=== PATIENT | female | born 1980 | race Caucasian/White ===

== ENCOUNTER 2021-12-20 16:01 | Inpatient (IN) ==
[2021-12-20] MEDS ORDERED: Buffered Lidocaine 1% SYRIN 1 ml INTRADERM ONE (18:05)
[2021-12-20] MEDS ORDERED: Lactated Ringers 1000 ml BAG 1,000 ML IV ONE (18:05)
[2021-12-20] MEDS ORDERED: Dinoprostone 10 MG VAG.SUPP VAGINAL ONE (18:05)
[2021-12-20] MEDS ORDERED: Lactated Ringers 1000 ml BAG 1,000 ML IV SCH (19:00)
[2021-12-20 20:10] LABS: Urine Benzodiazepine Screen None Detected (None Detect); Urine Cannabinoids Screen None Detected (None Detect); Urine Opiates Screen None Detected (None Detect)
[2021-12-20 20:29] LABS: Hematocrit 36 % (35-47); Hemoglobin 12.3 g/dL (12.0-16.0); Mean Corpuscular HGB Conc 34 g/dL (31-36); Mean Corpuscular Hemoglobin 32 pg (27-31); Mean Corpuscular Volume 94 fL (80-97); Mean Platelet Volume 11.8 fL (7.4-10.4); Platelet Count 126 10^3/uL (150-450); Red Blood Count 3.79 10^6 /uL (3.70-4.87); Red Cell Distribution Width 13 % (10-15); White Blood Count 8.6 10^3/uL (3.5-10.8)
[2021-12-20 20:59] LABS: Albumin 2.8 g/dL (3.2-5.2); Albumin/Globulin Ratio 1.2 (1-3); Calcium 8.4 mg/dL (8.6-10.3); Globulin 2.4 g/dL (2-4); Potassium 4.1 mmol/L (3.5-5.0); Total Bilirubin 0.3 mg/dL (0.2-1.0); Total Protein 5.2 g/dL (6.4-8.9); eGFR CKD-EPI 71.8 (>60)
[2021-12-20 21:07] LABS: ABS Eosinophils 0.1 10^3/ul (0-0.6); ABS Lymphocytes 2.2 10^3/ul (1.0-4.8); ABS Monocytes 0.5 10^3/ul (0-0.8); ABS Neutrophils 5.7 10^3/ul (1.5-7.7); Eosinophil % 0.8 %; Lymphocyte % 25.6 %
[2021-12-21 02:24] LABS: Hematocrit 36 % (35-47); Hemoglobin 12.6 g/dL (12.0-16.0); Mean Corpuscular HGB Conc 35 g/dL (31-36); Mean Corpuscular Hemoglobin 33 pg (27-31); Mean Corpuscular Volume 94 fL (80-97); Mean Platelet Volume 11.9 fL (7.4-10.4); Platelet Count 119 10^3/uL (150-450); Red Blood Count 3.87 10^6 /uL (3.70-4.87); Red Cell Distribution Width 13 % (10-15); White Blood Count 7.8 10^3/uL (3.5-10.8)
[2021-12-21 02:26] LABS: ABS Eosinophils 0.1 10^3/ul (0-0.6); ABS Lymphocytes 2.3 10^3/ul (1.0-4.8); ABS Monocytes 0.5 10^3/ul (0-0.8); ABS Neutrophils 4.9 10^3/ul (1.5-7.7); Lymphocyte % 29.3 %
[2021-12-21 03:01] LABS: Albumin 2.7 g/dL (3.2-5.2); Albumin/Globulin Ratio 1.2 (1-3); Globulin 2.3 g/dL (2-4); Total Bilirubin 0.3 mg/dL (0.2-1.0); eGFR CKD-EPI 78.2 (>60)
[2021-12-21] MEDS ORDERED: Lidocaine 4% GEL 10 GM TUBE TOPICAL PRN (10:05)
[2021-12-21] MEDS ORDERED: Lidocaine 2% JELLY 6 ML Topical TOPICAL PRN (10:28)
[2021-12-21] MEDS ORDERED: miSOPROStol 100 mcg TAB VAGINAL ONE ×4 (10:56→23:24)
[2021-12-21] MEDS ORDERED: miSOPROStol 100 mcg TAB ONE (11:03)
[2021-12-21 14:15] LABS: Hematocrit 36 % (35-47); Hemoglobin 12.3 g/dL (12.0-16.0); Mean Corpuscular HGB Conc 34 g/dL (31-36); Mean Corpuscular Hemoglobin 32 pg (27-31); Mean Corpuscular Volume 93 fL (80-97); Mean Platelet Volume 11.2 fL (7.4-10.4); Platelet Count 116 10^3/uL (150-450); Red Blood Count 3.91 10^6 /uL (3.70-4.87); Red Cell Distribution Width 13 % (10-15); White Blood Count 8.3 10^3/uL (3.5-10.8)
[2021-12-21 15:26] LABS: Albumin 2.7 g/dL (3.2-5.2); Albumin/Globulin Ratio 1.2 (1-3); Calcium 7.8 mg/dL (8.6-10.3); Globulin 2.3 g/dL (2-4); Potassium 3.8 mmol/L (3.5-5.0); Total Bilirubin 0.3 mg/dL (0.2-1.0); Uric Acid 6.9 mg/dL (2.3-6.6); eGFR CKD-EPI 74.4 (>60)
[2021-12-21 16:19] LABS: ABS Lymphocytes 1.9 10^3/ul (1.0-4.8); ABS Monocytes 0.6 10^3/ul (0-0.8); ABS Neutrophils 5.7 10^3/ul (1.5-7.7); Eosinophil % 0.5 %; Large Platelets Present; Lymphocyte % 23.4 %; Nucleated Red Blood Cells % 0.1
[2021-12-21 20:26] LABS: ABS Eosinophils 0.1 10^3/ul (0-0.6); ABS Lymphocytes 2.5 10^3/ul (1.0-4.8); ABS Monocytes 0.7 10^3/ul (0-0.8); ABS Neutrophils 5.8 10^3/ul (1.5-7.7); Eosinophil % 1.2 %; Hematocrit 38 % (35-47); Hemoglobin 12.9 g/dL (12.0-16.0); Mean Corpuscular HGB Conc 34 g/dL (31-36); Mean Corpuscular Hemoglobin 32 pg (27-31); Mean Corpuscular Volume 94 fL (80-97); Nucleated Red Blood Cells % 0.1; Red Blood Count 4.05 10^6 /uL (3.70-4.87); Red Cell Distribution Width 13 % (10-15); White Blood Count 9.2 10^3/uL (3.5-10.8)
[2021-12-21 21:13] LABS: Albumin 2.8 g/dL (3.2-5.2); Albumin/Globulin Ratio 1.1 (1-3); Calcium 8.3 mg/dL (8.6-10.3); Globulin 2.6 g/dL (2-4); Potassium 4.2 mmol/L (3.5-5.0); Total Bilirubin 0.4 mg/dL (0.2-1.0); Total Protein 5.4 g/dL (6.4-8.9); eGFR CKD-EPI 66.3 (>60)
[2021-12-21 21:31] LABS: Large Platelets Present; Platelet Count 132 10^3/uL (150-450)
[2021-12-22 02:24] LABS: Hematocrit 36 % (35-47); Hemoglobin 12.4 g/dL (12.0-16.0); Mean Corpuscular HGB Conc 35 g/dL (31-36); Mean Corpuscular Hemoglobin 33 pg (27-31); Mean Corpuscular Volume 95 fL (80-97); Mean Platelet Volume 12.1 fL (7.4-10.4); Platelet Count 114 10^3/uL (150-450); Red Blood Count 3.76 10^6 /uL (3.70-4.87); Red Cell Distribution Width 13 % (10-15); White Blood Count 8.2 10^3/uL (3.5-10.8)
[2021-12-22 02:40] LABS: ABS Basophils 0.1 10^3/ul (0-0.2); ABS Eosinophils 0.1 10^3/ul (0-0.6); ABS Lymphocytes 2.5 10^3/ul (1.0-4.8); ABS Monocytes 0.6 10^3/ul (0-0.8); Eosinophil % 1.4 %; Lymphocyte % 29.9 %; Nucleated Red Blood Cells % 0.1
[2021-12-22 02:48] LABS: Albumin 2.4 g/dL (3.2-5.2); Calcium 7.8 mg/dL (8.6-10.3); Globulin 2.3 g/dL (2-4); Potassium 3.8 mmol/L (3.5-5.0); Total Bilirubin 0.3 mg/dL (0.2-1.0); Total Protein 4.7 g/dL (6.4-8.9); eGFR CKD-EPI 79.2 (>60)
[2021-12-22] MEDS ORDERED: Magnesium Sulfate OB PREMIX 4 GM/100 ML BAG IV ONE (06:12)
[2021-12-22] MEDS ORDERED: Calcium Gluconate 1 GM/10 ML VIAL (in Pyxis) IV PUSH PRN ×2 (06:14→08:57)
[2021-12-22] MEDS ORDERED: Labetalol IV 5 MG/ML 20 ml VIAL ONE (06:16)
[2021-12-22] MEDS ORDERED: Magnesium Sulfate OB PREMIX 40 GM/1,000 ML BAG ONE (06:17)
[2021-12-22] MEDS: Labetalol IV 5 MG/ML 20 ml VIAL IV PUSH ONE ×2 (06:19→06:26)
[2021-12-22] MEDS ORDERED: Lidocaine/Epinephrin 1.5%/200 5 ML AMP INJ ONE (06:30)
[2021-12-22] MEDS ORDERED: OBEPIDURAL (200 ML) 200 ML EPIDURAL ONE (06:30)
[2021-12-22] MEDS ORDERED: fentaNYL 100 mcg/2 ml 50 MCG/ML VIAL ONE ×2 (06:49→17:56)
[2021-12-22] MEDS ORDERED: Magnesium Sulfate OB PREMIX 40 GM/1,000 ML BAG IVPB SCH ×2 (07:00→09:00)
[2021-12-22] MEDS ORDERED: Lactated Ringers 1000 ml BAG 1,000 ML IV ONE (08:04)
[2021-12-22] MEDS ORDERED: Sodium Citrate/Citric Acid LIQ 15 ML UDC PO PRN (08:04)
[2021-12-22] MEDS ORDERED: Phenylephrine 40 mcg/mL 10mL (400mcg) SYRINGE IV PUSH PRN ×2 (08:04)
[2021-12-22 08:17] LABS: Hematocrit 38 % (35-47); Mean Corpuscular HGB Conc 34 g/dL (31-36); Mean Corpuscular Hemoglobin 33 pg (27-31); Mean Corpuscular Volume 94 fL (80-97); Mean Platelet Volume 11.8 fL (7.4-10.4); Platelet Count 130 10^3/uL (150-450); Red Blood Count 4.01 10^6 /uL (3.70-4.87); Red Cell Distribution Width 13 % (10-15); White Blood Count 9.8 10^3/uL (3.5-10.8)
[2021-12-22 08:25] LABS: Urine Appearance Cloudy; Urine Bilirubin Negative (Negative); Urine Blood 2+ (Negative); Urine Color Yellow; Urine Glucose Negative (Negative); Urine Ketones Negative (Negative); Urine Nitrite Negative (Negative); Urine Protein 2+(100 mg/dL) (Negative); Urine Specific Gravity 1.013 (1.002-1.030); Urine Urobilinogen Negative (Negative)
[2021-12-22] MEDS ORDERED: Lactated Ringers 1000 ml BAG 1,000 ML IV SCH ×2 (09:00→20:00)
[2021-12-22] MEDS ORDERED: Oxytocin in LR 20 UNITS/1,000 ML BAG IVPB SCH ×2 (09:00→09:57)
[2021-12-22] MEDS ORDERED: OBEPIDURAL (200 ML) 200 ML EPIDURAL SCH (09:00)
[2021-12-22 09:02] LABS: Albumin 2.8 g/dL (3.2-5.2); Albumin/Globulin Ratio 1.1 (1-3); Calcium 8.1 mg/dL (8.6-10.3); Globulin 2.5 g/dL (2-4); Potassium 3.7 mmol/L (3.5-5.0); Total Bilirubin 0.4 mg/dL (0.2-1.0); Total Protein 5.3 g/dL (6.4-8.9); eGFR CKD-EPI 70.9 (>60)
[2021-12-22 09:39] LABS: ABS Basophils 0.1 10^3/ul (0-0.2); ABS Eosinophils 0.1 10^3/ul (0-0.6); ABS Monocytes 0.6 10^3/ul (0-0.8); Large Platelets Present; Lymphocyte % 20.6 %
[2021-12-22 09:44] LABS: Urine Amorphous Crystals Present (Absent); Urine Bacteria Absent (Absent); Urine Red Blood Cell 3+(>10/hpf) (Absent); Urine Squamous Epithelial Cell Present (Absent); Urine Transitional Epithelial Present (Absent); Urine White Blood Cell Absent (Absent)
[2021-12-22 14:25] LABS: Hematocrit 37 % (35-47); Hemoglobin 12.5 g/dL (12.0-16.0); Mean Corpuscular HGB Conc 34 g/dL (31-36); Mean Corpuscular Hemoglobin 32 pg (27-31); Mean Corpuscular Volume 95 fL (80-97); Mean Platelet Volume 12.1 fL (7.4-10.4); Platelet Count 120 10^3/uL (150-450); Red Blood Count 3.87 10^6 /uL (3.70-4.87); Red Cell Distribution Width 13 % (10-15); White Blood Count 9.8 10^3/uL (3.5-10.8)
[2021-12-22 14:56] LABS: Albumin 2.7 g/dL (3.2-5.2); Albumin/Globulin Ratio 1.2 (1-3); Calcium 7.8 mg/dL (8.6-10.3); Globulin 2.3 g/dL (2-4); Total Bilirubin 0.4 mg/dL (0.2-1.0); eGFR CKD-EPI 73.5 (>60)
[2021-12-22 14:59] LABS: Magnesium 5.1 mg/dL (1.9-2.7)
[2021-12-22 15:41] LABS: ABS Lymphocytes 1.7 10^3/ul (1.0-4.8); ABS Monocytes 0.5 10^3/ul (0-0.8); ABS Neutrophils 7.5 10^3/ul (1.5-7.7); Eosinophil % 0.2 %; Lymphocyte % 17.7 %
[2021-12-22] MEDS ORDERED: ceFOXitin 2 GM IVPREMIX 2 GM/50 ML BAG IVPB ONE (17:35)
[2021-12-22] MEDS ORDERED: ceFOXitin 2 GM IVPREMIX 2 GM/50 ML BAG ONE (17:35)
[2021-12-22] MEDS ORDERED: Carboprost Tromethamine 250 mcg 1 ml VIAL ONE (17:41)
[2021-12-22] MEDS ORDERED: Lidocaine 2% w/ EPI 1:200,000 MPF 20 ML SDV VIAL ONE (17:45)
[2021-12-22] MEDS ORDERED: Ondansetron 4 mg VIAL 2 MG/ML 2 ml VIAL ONE (18:07)
[2021-12-22] MEDS ORDERED: Oxytocin 10 UNITS/ML 1 ML VIAL ONE (18:07)
[2021-12-22] MEDS ORDERED: Metoclopramide 5 MG/ML VIAL (10 mg) ONE (18:08)
[2021-12-22] MEDS ORDERED: Morphine PF AMP (0.5MG/ML) 5 MG/10 ML AMP ONE (18:19)
[2021-12-22] MEDS ORDERED: Propofol 10 MG/ML 20 ML BTL ONE (18:42)
[2021-12-22] MEDS ORDERED: Ondansetron 4 mg VIAL 2 MG/ML 2 ml VIAL IV PRN (19:27)
[2021-12-22] MEDS ORDERED: Naloxone 0.4 mg VIAL 0.4 mg/ml 1 ml VIAL IV PRN ×2 (19:27→19:49)
[2021-12-22] MEDS ORDERED: Glycerin ADULT 2.4 gm SUPP PR PRN (19:42)
[2021-12-22] MEDS ORDERED: Dibucaine 1% OINT 28.35 GM TUBE PR PRN (19:42)
[2021-12-22] MEDS ORDERED: Witch Hazel PAD JAR TOPICAL PRN (19:42)
[2021-12-22] MEDS: oxyCODONE/Acetamin 5/325 mg TAB PO PRN (20:10)
[2021-12-22 20:12] LABS: ABS Lymphocytes 1.1 10^3/ul (1.0-4.8); ABS Monocytes 0.4 10^3/ul (0-0.8); ABS Neutrophils 11.5 10^3/ul (1.5-7.7); Eosinophil % 0.1 %; Hematocrit 37 % (35-47); Hemoglobin 12.3 g/dL (12.0-16.0); Lymphocyte % 8.2 %; Mean Corpuscular HGB Conc 33 g/dL (31-36); Mean Corpuscular Hemoglobin 32 pg (27-31); Mean Corpuscular Volume 95 fL (80-97); Mean Platelet Volume 11.6 fL (7.4-10.4); Platelet Count 123 10^3/uL (150-450); Red Cell Distribution Width 14 % (10-15)
[2021-12-22 20:45] LABS: Albumin 2.8 g/dL (3.2-5.2); Albumin/Globulin Ratio 1.3 (1-3); Calcium 7.8 mg/dL (8.6-10.3); Globulin 2.2 g/dL (2-4); Magnesium 3.4 mg/dL (1.9-2.7); Potassium 4.5 mmol/L (3.5-5.0); Total Bilirubin 0.4 mg/dL (0.2-1.0); eGFR CKD-EPI 67.8 (>60)
[2021-12-22] MEDS: Oxytocin in LR 20 UNITS/1,000 ML BAG IVPB SCH (21:16)
[2021-12-23] MEDS: Oxytocin in LR 20 UNITS/1,000 ML BAG IVPB SCH (03:31)
[2021-12-23] MEDS ORDERED: LACTATED RINGERS 500 ML BAG IV ONE (05:00)
[2021-12-23] MEDS ORDERED: Furosemide 40 mg/4 ml IV VIAL ONE (05:39)
[2021-12-23 05:46] LABS: ABS Lymphocytes 1.7 10^3/ul (1.0-4.8); ABS Neutrophils 10.2 10^3/ul (1.5-7.7); Hematocrit 36 % (35-47); Hemoglobin 12.3 g/dL (12.0-16.0); Lymphocyte % 13.2 %; Mean Corpuscular HGB Conc 34 g/dL (31-36); Mean Corpuscular Hemoglobin 32 pg (27-31); Mean Corpuscular Volume 94 fL (80-97); Mean Platelet Volume 11.4 fL (7.4-10.4); Nucleated Red Blood Cells % 0.1; Platelet Count 116 10^3/uL (150-450); Red Blood Count 3.82 10^6 /uL (3.70-4.87); Red Cell Distribution Width 14 % (10-15); White Blood Count 12.9 10^3/uL (3.5-10.8)
[2021-12-23] MEDS ORDERED: Furosemide 20 mg/2 ml IV VIAL IV ONE (06:00)
[2021-12-23] MEDS ORDERED: Labetalol IV 5 MG/ML 20 ml VIAL IV PUSH ONE (06:24)
[2021-12-23 06:25] LABS: Albumin 2.7 g/dL (3.2-5.2); Albumin/Globulin Ratio 1.2 (1-3); Calcium 7.7 mg/dL (8.6-10.3); Globulin 2.2 g/dL (2-4); Magnesium 4.3 mg/dL (1.9-2.7); Potassium 4.6 mmol/L (3.5-5.0); Total Bilirubin 0.3 mg/dL (0.2-1.0); Total Protein 4.9 g/dL (6.4-8.9); eGFR CKD-EPI 71.8 (>60)
[2021-12-23] MEDS: oxyCODONE/Acetamin 5/325 mg TAB PO PRN (07:20)
[2021-12-25 15:35] LABS: Albumin 2.5 g/dL (3.2-5.2); Albumin/Globulin Ratio 1.2 (1-3); Calcium 7.9 mg/dL (8.6-10.3); Globulin 2.1 g/dL (2-4); Potassium 4.3 mmol/L (3.5-5.0); Total Bilirubin 0.2 mg/dL (0.2-1.0); Total Protein 4.6 g/dL (6.4-8.9); eGFR CKD-EPI 83.4 (>60)
[2021-12-26 07:52] VITALS: BP 150/86
== END 2021-12-26 11:50 | disposition home or self-care (01) | DRG 540 ==
LOC: MCHOBOUT 16:01 → MCHOB 17:41
PROVIDERS: ADMIT Midwife; ATTEND Obstetrics & Gynecology